=== PATIENT | male | born 1990 | race Caucasian/White ===

== ENCOUNTER 2018-01-02 19:30 | Emergency (ER) | payer OTHER ==
[~2018-01-02] VITALS: Ht 177.8 cm; Wt 102.1 kg
[~2018-01-02 19:30] MED LIST: PERCOCET 5-3251 EACH PO; TRAMADOL HCL50 M1 PO
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
[2018-01-03] MEDS ORDERED: CYCLOBENZAPRINE10 M1 PO (00:24)
[2018-01-03 00:34] VITALS: BP 132/86
== END 2018-01-03 00:37 ==
LOC: ERH 19:30
DX: S09.90XA Unspecified injury of head, initial encounter (principal); S06.0X0A Concussion without loss of consciousness, initial encounter; M54.5 Low back pain; R51 Headache; V89.2XXA Person injured in unspecified motor-vehicle accident, traffic, initial encounter; Y92.411 Interstate highway as the place of occurrence of the external cause
CPT/HCPCS: 72110